=== PATIENT | female | born 1985 ===

== ENCOUNTER 2017-11-29 06:16 | Emergency (ER) | payer SELFPAY ==
--- NOTE | 2017-11-29 08:11 | RAD ---
LEFT ANKLE THREE VIEWS: HISTORY: Fall. Left ankle pain and swelling. FINDINGS: The ankle mortise is maintained. No acute fracture or dislocation is seen. POS: [facility]
== END 2017-11-29 07:19 | disposition home or self-care (01) ==
LOC: ERS 06:16
DX: S93.402A Sprain of unspecified ligament of left ankle, initial encounter (principal); J45.909 Unspecified asthma, uncomplicated; F41.9 Anxiety disorder, unspecified; W01.0XXA Fall on same level from slipping, tripping and stumbling without subsequent striking against object, initial encounter